=== PATIENT | male | born 1970 | race Caucasian/White ===

== ENCOUNTER 2016-10-28 14:04 | Emergency (ER) | payer MEDICARE, OTHER ==
[2016-10-28 15:33] LABS: HEMOGLOBIN 14.2 gm/dl (14.0-17.5); RED BLOOD COUNT 4.68 M/UL (4.20-5.50); WHITE BLOOD COUNT 3.7 K/UL (4.5-11.0)
[2016-10-28 16:05] LABS: BUN/CREATININE RATIO 20 (0-10)
== END 2016-10-28 21:15 | disposition home or self-care (01) ==
LOC: ER1 14:04
PROVIDERS: Emergency Medicine
DX: J40 Bronchitis, not specified as acute or chronic (principal); I10 Essential (primary) hypertension; G80.9 Cerebral palsy, unspecified; Z79.82 Long term (current) use of aspirin; Z79.899 Other long term (current) drug therapy
CPT/HCPCS: 36415; 36600; 71020; 80053; 82803; 84484; 85025; 85379; 87040; 93005; 94640; 94664; 96374; 99285; J2930

== ENCOUNTER → 2016-12-14 | Outpatient (CLI) | payer MEDICARE, OTHER | LOC: EXRD 15:36 | DX: M54.5 Low back pain (principal); N20.0 Calculus of kidney | CPT/HCPCS: 72100 ==

== ENCOUNTER → 2021-07-12 | Outpatient (CLI) | payer MEDICARE, OTHER ==
[~2021-07-12] MED LIST: ALLER-EASE180 MG PO; ASPIRIN EC81 MG PO; CENTRUM SPECIA1 EAC1 PO; CIPRO500 MG PO; COZAAR50 MG PO; CYCLOBENZAPRINE10 MG PO; FIBER PO; FIBER500 MG PO; FLAGYL500 MG PO; FLOMAX 0.4 MG0.4 MG PO; KEFLEX500 MG PO; LORTAB 5-325 M1 EACH PO; LORTAB 7.5-3251 EACH PO; NEURONTIN100 MG PO; NORCO 5-325 TA1 EACH PO; NORVASC10 MG PO; PROBIOTIC1 EAC1 PO; PROTONIX40 MG PO; RANITIDINE HCL150 MG PO; STOOL SOFTENER100 M1 PO; TEGRETOL 200 M200 MG PO; VIIBRYD20 MG PO; VIT D3 PO; [UNRECOGNIZED DRUG - OTHER] PO
[2021-07-13 08:14] LABS: FSH 6.5 mIU/mL (1.5-12.4); LUTEINIZING HORMONE(LH) 6.5 mIU/mL (1.7-8.6); SEX HORM BINDING GLOB, SERUM 44.8 nmol/L (19.3-76.4)
[2021-07-13 13:14] LABS: THYROID PEROXIDASE (TPO) AB <8 IU/mL (0-34)
[2021-07-16 00:09] LABS: % FREE TESTOSTERONE 3.42 % (1.50-4.20)
== END ==
LOC: LAB 08:11
PROVIDERS: Internal Medicine
DX: E29.1 Testicular hypofunction (principal); E03.9 Hypothyroidism, unspecified; E22.1 Hyperprolactinemia
CPT/HCPCS: 36415; 83001; 83002; 84146; 84270; 84402; 84403; 84439; 84443; 86376

== ENCOUNTER → 2021-08-12 | Outpatient (CLI) | payer MEDICARE, OTHER | LOC: MRI 10:52 | DX: E23.0 Hypopituitarism (principal) | CPT/HCPCS: 70553; A9577 ==

== ENCOUNTER → 2021-10-22 | Outpatient (CLI) | payer MEDICARE, OTHER ==
[2021-10-23 08:14] LABS: FSH 5.2 mIU/mL (1.5-12.4); LUTEINIZING HORMONE(LH) 4.9 mIU/mL (1.7-8.6)
[2021-10-23 09:14] LABS: CORTISOL 11.1 ug/dL (.)
[2021-10-23 11:14] LABS: INSULIN 13.9 uIU/mL (2.6-24.9)
[2021-10-24 21:06] LABS: IGF-1 153 ng/mL (74-255)
== END ==
LOC: LAB 08:25
PROVIDERS: Internal Medicine
DX: E03.9 Hypothyroidism, unspecified (principal); E23.0 Hypopituitarism
CPT/HCPCS: 36415; 82533; 82627; 83001; 83002; 84402; 84403; 84439; 84443

== ENCOUNTER 2022-03-25 12:22 | Emergency (ER) | payer MEDICARE, OTHER ==
[2022-03-25 13:34] LABS: HEMOGLOBIN 14.1 gm/dl (14.0-17.5); RED BLOOD COUNT 4.63 M/UL (4.20-5.50); WHITE BLOOD COUNT 8.4 K/UL (4.5-11.0)
[2022-03-25 14:02] LABS: BUN/CREATININE RATIO 26 (0-10)
== END 2022-03-25 16:45 | disposition home or self-care (01) ==
LOC: ER1 12:22
PROVIDERS: Physician Assistant
DX: R55 Syncope and collapse (principal); W19.XXXA Unspecified fall, initial encounter; Y92.009 Unspecified place in unspecified non-institutional (private) residence as the place of occurrence of the external cause
CPT/HCPCS: 70450; 71045; 72125; 80053; 82550; 82553; 84484; 85025; 93005; 99284